=== PATIENT | male | born 1970 | race Caucasian/White ===

== ENCOUNTER 2019-07-02 10:13 | Emergency (ER) | payer OTHER ==
[~2019-07-02] VITALS: Ht 185.4 cm; Wt 142.9 kg
[2019-07-02 11:13] LABS: Anion Gap 6 mmol/L (6-16); Blood Urea Nitrogen 21 mg/dL (8-24); Bun/Creatinine Ratio 16.5 (12.0-20.0); CO2, Blood 26 mmol/L (21-32); Calcium, Blood 8.5 mg/dL (8.5-10.1); Chloride, Blood 111 mmol/L (98-108); Creatinine, Blood 1.27 mg/dL (0.60-1.20); Glomerular Filtration Rate >60 (60-); Glucose, Blood 100 mg/dL (70-99); Potassium, Blood 3.8 mmol/L (3.5-5.5); Sodium, Blood 143 mmol/L (136-145); Troponin I <0.015 ng/mL (0.000-0.040)
[2019-07-02] MEDS ORDERED: Tambocor100 MG (12:12)
[2019-07-02] MEDS ORDERED: ASPI81CH PO (12:15)
[2019-07-02] MEDS ORDERED: Toprol Xl25 MG PO (12:16)
== END 2019-07-02 12:05 | disposition home or self-care (01) ==
LOC: ER 10:13
PROVIDERS: Emergency Medicine
DX: I48.0 Paroxysmal atrial fibrillation (principal)
CPT/HCPCS: 80048; 84484; 93005; 93010; 96374; 99285-25